=== PATIENT | male | born 1975 ===

== ENCOUNTER → 2019-12-11 | Outpatient (CLI) | payer OTHER ==
[~2019-12-11] MED LIST: DYMISTA NASAL S23 GM NASAL; OTIPRIO1 ML OT; SINGULAIR 10MG10 MG PO
== END | disposition home or self-care (01) ==
LOC: OFIC 805 09:49
DX: H93.8X3 Other specified disorders of ear, bilateral (principal); R22.1 Localized swelling, mass and lump, neck; J34.2 Deviated nasal septum; J30.89 Other allergic rhinitis; H61.23 Impacted cerumen, bilateral

== ENCOUNTER 2019-12-12 08:00 | Outpatient (CLI) | payer OTHER | END 2019-12-12 08:02 | disposition home or self-care (01) | LOC: SONOGRAMA 08:00 | DX: R22.1 Localized swelling, mass and lump, neck (principal) ==

== ENCOUNTER 2019-12-28 10:36 | Outpatient (CLI) | payer OTHER ==
[~2019-12-28] VITALS: Ht 182.9 cm; Wt 90.7 kg
[2019-12-28] MEDS ORDERED: SINGULAIR 10MG10 MG PO (11:40)
[2019-12-28] MEDS ORDERED: OTIPRIO1 ML OT (11:40)
[2019-12-28] MEDS ORDERED: DYMISTA NASAL S23 GM NASAL (11:41)
== END 2019-12-28 11:51 | disposition home or self-care (01) ==
LOC: OFIC 805 10:36
PROVIDERS: ATTEND Otolaryngology
DX: J34.2 Deviated nasal septum (principal); J30.89 Other allergic rhinitis; R22.1 Localized swelling, mass and lump, neck; H93.8X3 Other specified disorders of ear, bilateral; H61.23 Impacted cerumen, bilateral

== ENCOUNTER 2020-02-21 13:51 | Outpatient (CLI) | payer OTHER | END 2020-02-21 14:20 | disposition home or self-care (01) | LOC: OFIC 805 13:51 | PROVIDERS: ATTEND Otolaryngology | DX: J30.89 Other allergic rhinitis (principal); R22.1 Localized swelling, mass and lump, neck; R07.0 Pain in throat; K21.0 Gastro-esophageal reflux disease with esophagitis; J34.2 Deviated nasal septum ==

== ENCOUNTER 2020-03-21 11:55 | Outpatient (CLI) | payer OTHER | END 2020-03-21 12:00 | disposition home or self-care (01) | LOC: OFIC 805 11:55 | PROVIDERS: ATTEND Otolaryngology | DX: R07.0 Pain in throat (principal); K21.0 Gastro-esophageal reflux disease with esophagitis; R22.1 Localized swelling, mass and lump, neck ==

== ENCOUNTER 2021-01-21 17:26 | Emergency (ER) | payer OTHER ==
[~2021-01-21] VITALS: Ht 195.6 cm; Wt 95.3 kg
== END 2021-01-21 22:23 | disposition home or self-care (01) ==
LOC: ER 17:26
DX: S92.351A Displaced fracture of fifth metatarsal bone, right foot, initial encounter for closed fracture (principal); W18.39XA Other fall on same level, initial encounter; Y93.89 Activity, other specified; Y92.098 Other place in other non-institutional residence as the place of occurrence of the external cause; Y99.8 Other external cause status